=== PATIENT | female | born 1955 | race Caucasian/White ===

== ENCOUNTER → 2024-06-10 09:41 | Outpatient (CLI) | payer MEDICARE, OTHER, SELFPAY ==
--- NOTE | 2024-06-10 19:13 | DI.NM.S_ITS ---
DATE OF SERVICE: 06/10/2024 PROCEDURE: Exercise perfusion study. INDICATIONS: Syncope and history of chest pain. RADIOPHARMACEUTICAL: 25.9 mCi technetium-99m Myoview IV was injected at stress and 11.9 mCi technetium-99m Myoview IV was injected at rest. CARDIAC STRESS: The patient underwent exercise perfusion study under the supervision of an attending staff. The patient walked on Angel protocol for 9 minutes and 46 seconds, achieved maximum heart rate of 150, which was 98% of target heart rate. Normal blood pressure response. Resting blood pressure 108/70 and peak blood pressure 148/70. 10.1 METs of workload. Baseline rhythm is sinus with some repolarization changes. During stress, some nonspecific upsloping ST depression in inferolateral leads with quick recovery. No significant arrhythmias. No chest pain. Moderate shortness of breath. RAW DATA: There is breast shadow seen. GATED STUDY: Resting LV ejection fraction 84% and stress LV ejection fraction 88% without any obvious wall motion abnormalities. Resting end- diastolic volume 67 mL. TID ratio 0.82, which is within normal limits. Lung/heart ratio 0.30, which is within normal limits. Summed stress score is 0. MYOCARDIAL PERFUSION SCAN: Stress supine and resting supine images revealed small size, mildly decreased perfusion of anterior wall which got completely resolved during stress prone images suggestive of breast tissue attenuation artifact. No convincing ischemia or infarction. CONCLUSION: This is a normal myocardial perfusion study with evidence of breast tissue attenuation artifact, which got completely resolved during prone images suggestive of breast tissue attenuation artifact. Summed stress score is 0. Excellent exercise tolerance. Normal hemodynamic response. SIRISHA -59%. Nonspecific ST-T changes. No anginal symptoms. No significant arrhythmias. Preserved LV function. Overall, low-risk exercise myocardial perfusion scan. Livia Sesay - ERNESTINA/fn/NM doc#: [id number]/job#: [id number] dd: 06/10/2024 17:09:00 dt: 06/10/2024 19:02:00 DICTATING MD/COPIES TO: Silver Mattson MD COPIES MNE: ZE;
== END ==
PROVIDERS: PCP Internal Medicine; Referring Provider Internal Medicine; Visit Provider Internal Medicine
DX: R07.89 Other chest pain (principal); R55 Syncope and collapse
CPT/HCPCS: 78452; 93017; A9502

== ENCOUNTER → 2024-07-26 14:52 | Outpatient (CLI) | payer MEDICARE, OTHER, SELFPAY ==
--- NOTE | 2024-07-26 | DI.ECHO.S_ITS ---
[place] [facility]+ [facility] : : [address] : : [place] : : [id number] : : Phone: [phone] Echocardiogram Report + + :Name: HEIDI PINEDA Study Date: 07/26/2024 Height: 64 in : :[facility] ReadingLocation: Weight: 125 lb : : Gender: Female BSA: 1.6 m2 : :: 1955 Age: 68 yrs BP: 108/56 mmHg: :Reason For Study: PAROXYSMAL SUPRAVENTRICULAR TACHYCARDIA : :Ordering Physician: CHERYL VINSON Performed By: Nicola Laura : :Referring: CHERYL VINSON : + + Interpretation Summary 1. The left ventricular contractility is normal. Estimated ejection fraction is greater than 60% with no segmental wall motion abnormalities. No LVH. Normal diastolic function. 2. The right ventricular contractility is normal. 3. Biatrial enlargement noted. 4. Mild mitral regurgitation. 5. Mild tricuspid regurgitation with estimated pulmonary systolic artery pressures of 36 mmHg. 6. No obvious intracardiac shunts. 7. No obvious intracardiac masses nor thrombi. 8. No hemodynamically significant pericardial effusion. 9. Low right-sided filling pressures. Conclusion: Normal biventricular function with mild valvular insufficiencies. Procedure: A two-dimensional transthoracic echocardiogram with color flow and Doppler was performed. The study quality was technically good. There is no prior echocardiogram noted for this patient. The patient was in normal sinus rhythm during the exam. Left Ventricle: The left ventricle is normal in size. There is normal left ventricular wall thickness. There is no ventricular septal defect visualized. The ejection fraction is estimated to be 60-65%. There are no focal wall motion abnormalities. Diastolic parameters suggest probable normal left ventricular diastolic function and normal filling pressures. Right Ventricle: The right ventricle is normal in size and function. Atria: The left atrium is severely dilated. The right atrium is mildly dilated. There is no Doppler evidence for an atrial septal defect. Mitral Valve: The mitral valve is normal in structure and function. There is mild mitral regurgitation. There are multiple regurgitant jets present. Aortic Valve: The aortic valve is trileaflet. The aortic valve opens well. No aortic regurgitation is present. Tricuspid Valve: The tricuspid valve is normal in structure and function. There is mild tricuspid regurgitation. The right ventricular systolic pressure is estimated to be at least 36 mmHg based on an estimated right atrial pressure of 3 mm Hg. Pulmonic Valve: The pulmonic valve is normal in structure and function. There is no pulmonic valvular regurgitation. Great Vessels: The aortic root is normal size. The dimensions of the ascending aorta are normal. The pulmonary artery is normal size. The IVC is of normal diameter and collapses greater than 50% with a sniff. This suggests a low right atrial pressure of 3 mm Hg. Pericardium/ Pleura There is no pericardial effusion. There is no pleural effusion. MMode/2D Measurements & Calculations LVIDd: 4.6 cm LVOT diam: 1.9 cm LVIDs: 3.3 cm Ao root diam: 2.6 cm FS: 27.9 % asc Aorta Diam: 2.8 cm EPSS: 0.45 cm IVSd: 0.63 cm LVPWd: 0.66 cm LV medeiros. diameter/BSA (cm/m^2): 2.9 LV sys. diameter/BSA (cm/m^2): 2.1 LA A2 area: 23.5 cm2 RA long axis: 5.5 cm LA A4 area: 26.9 cm2 RA area: 19.1 cm2 LA length (vol): 6.6 cm RA vol: 56.1 ml LA vol: 81.2 ml RA : 35.0 ml/m2 LA vol index: 50.7 ml/m2 IVC diam: 2.0 cm RVD1 (basal): 3.0 cm RVD2 (mid): 2.0 cm TAPSE: 3.3 cm Doppler Measurements & Calculations Ao V2 max: 145.9 cm/sec LVOT Max Mike: 104.2 cm/sec Ao V2 mean: 102.5 cm/sec LV V1 max P.3 mmHg Ao max P.5 mmHg LV V1 VTI: 23.3 cm Ao mean P.7 mmHg CHENCHO(I,D): 1.8 cm2 Ao V2 VTI: 35.1 cm CHENCHO(V,D): 2.0 cm2 sev ratio: 0.66 CHENCHO indexed to BSA (cm^2/m^2): 1.2 MV E max mike: 75.2 cm/sec TR max mike: 286.5 cm/sec MV A max mike: 47.2 cm/sec TR max P.8 mmHg MV E/A: 1.6 PA V2 max: 79.8 cm/sec Med Peak E' Mike: 8.3 cm/sec PA V2 mean: 55.4 cm/sec E/E' med: 9.0 PA mean P.4 mmHg Lat Peak E' Mike: 12.8 cm/sec PA pr(Accel): 13.9 mmHg E/E' lat: 5.9 E/e' average: 7.5 MV dec time: 0.23 sec SV(LVOT): 64.7 ml Reading Physician:
== END ==
PROVIDERS: PCP Internal Medicine; Referring Provider Internal Medicine; Visit Provider Internal Medicine
DX: I47.10 Supraventricular tachycardia, unspecified (principal); I08.1 Rheumatic disorders of both mitral and tricuspid valves
CPT/HCPCS: 93306